=== PATIENT | male | born 1935 | race Caucasian/White ===

== ENCOUNTER 2024-07-17 22:13 | Emergency (ER) | payer BC, OTHER ==
[~2024-07-17] VITALS: Ht 160 cm; Wt 68.0 kg
[2024-07-17 22:17] VITALS: BP 150/95; PULSE 72; RESP 16; TEMP 97.5; O2SAT 98
[2024-07-17] MEDS ORDERED: MULT-2253 PO (22:26)
[2024-07-17] MEDS ORDERED: LID5T TP (22:37)
[2024-07-17] MEDS ORDERED: OXYB5TAB44 PO (22:37)
[2024-07-17] MEDS ORDERED: PANT40EC PO (22:37)
[2024-07-17] MEDS ORDERED: MELA5SGL PO (22:37)
[2024-07-17] MEDS ORDERED: ATOR40TA PO (22:37)
[2024-07-17] MEDS ORDERED: GABA100C PO (22:37)
[2024-07-17] MEDS ORDERED: ASCO500T95 PO (22:37)
[2024-07-17] MEDS ORDERED: LOPE1SOL12 PO (22:40)
[2024-07-17] MEDS ORDERED: [UNRECOGNIZED DRUG - CODE] PO (22:40)
[2024-07-17] MEDS ORDERED: LOSA-272 PO (22:42)
[2024-07-17] MEDS ORDERED: METO25TE2 PO (22:42)
[2024-07-18 00:33] LABS: BASOPHILS # (AUTO) 0.1 K/uL (0.00-0.22); BASOPHILS % (AUTO) 1.6 % (0.0-2.0); EOSINOPHILS # (AUTO) 0.3 K/uL (0-0.4); EOSINOPHILS % (AUTO) 3.3 % (0.0-4.0); HEMATOCRIT 37.1 % (36-52); HEMOGLOBIN 12.3 g/dL (12.0-18.0); LYMPHOCYTES # (AUTO) 1.9 K/uL (2.0-11.5); LYMPHOCYTES % (AUTO) 23.7 % (20.5-51.1); MEAN CORPUSCULAR HEMOGLOBIN 30 pg (27-31); MEAN CORPUSCULAR HGB CONC 33 g/dL (33-37); MEAN CORPUSCULAR VOLUME 90.5 fL (80-94); MONOCYTES # (AUTO) 0.7 K/uL (0.8-1.0); MONOCYTES % (AUTO) 8.1 % (1.7-9.3); NEUTROPHILS # (AUTO) 5.1 K/uL (1.8-7.7); NEUTROPHILS % (AUTO) 63.3 % (42.2-75.2); PLATELET COUNT (AUTO) 213 K/uL (140-450); RED CELL DISTRIBUTION WIDTH 15.2 % (11.6-13.7); WHITE BLOOD COUNT (AUTO) 8.1 K/uL (4.8-10.8)
[2024-07-18 00:45] LABS: INR 1.13 (0.8-1.2); PARTIAL THROMBOPLASTIN TIME 25.6 secs (22-35.6); PROTHROMBIN TIME 11.8 secs (10.8-13.4)
[2024-07-18 00:46] LABS: ALANINE AMINOTRANSFERASE 20 U/L (12-78); ALBUMIN 3.4 g/dL (3.4-5.0); ALKALINE PHOSPHATASE 93 U/L (50-136); ANION GAP 8.3 (8-16); ASPARTATE AMINOTRANSFERASE 18 U/L (15-37); CALCIUM 10.7 mg/dL (8.5-10.1); CARBON DIOXIDE 33.5 mmol/L (21-32); CHLORIDE 103 mmol/L (98-107); CREATININE 0.9 mg/dL (0.6-1.3); GLUCOSE 117 mg/dL (74-106); POTASSIUM 3.8 mmol/L (3.5-5.1); SODIUM SERUM 141 mmol/L (136-145); TOTAL BILIRUBIN 0.3 mg/dL (0.0-1.0); TOTAL PROTEIN, SERUM 6.6 g/dL (6.4-8.2); UREA NITROGEN, BLOOD 20 mg/dL (7-18)
[2024-07-18 03:50] VITALS: BP 125/87; PULSE 74; RESP 16; TEMP 98.2; O2SAT 94
== END 2024-07-18 03:50 | disposition home or self-care (01) ==
LOC: MED 22:13
DX: K92.1 Melena (principal); K64.8 Other hemorrhoids; Z79.01 Long term (current) use of anticoagulants; F03.90 Unspecified dementia, unspecified severity, without behavioral disturbance, psychotic disturbance, mood disturbance, and anxiety; I10 Essential (primary) hypertension; Z98.890 Other specified postprocedural states; Z85.038 Personal history of other malignant neoplasm of large intestine; Z79.899 Other long term (current) drug therapy
CPT/HCPCS: 36415; 80053; 85025; 85610; 85730; 86886; 86900; 86901; 99285